=== PATIENT | male | born 1940 | race Caucasian/White ===

== ENCOUNTER 2019-02-09 12:42 | Emergency (ER) | payer MEDICARE, BC ==
[2019-02-09] MEDS ORDERED: Lidocaine 1% 30 ML SDV INJECT ONE (12:59)
[2019-02-09] MEDS ORDERED: Acetaminophen/HYDROcodone 325-10 MG Tab PO ONE (13:29)
--- NOTE | 2019-02-09 13:30 | CR ---
[id number] RAD/RAD Fingers Right EXAM: RAD Fingers Right CLINICAL DATA: TRAUMA COMPARISON: NO PREVIOUS SIMILAR EXAM IS AVAILABLE. FINDINGS: A compound comminuted ungual tuft injury of the distal right third phalanx is seen.. IMPRESSION: COMPOUND UNGUAL TUFT INJURY OF DISTAL RIGHT THIRD PHALANX. Leo Leblanc MD 02/09/19 0602 Thank you for allowing us to participate in the care of your patient.
[2019-02-09] MEDS ORDERED: Diphtheria,Pertussis(Acell),Tetanus Vaccine 0.5 ML Syringe IM ONE (14:59)
--- NOTE | 2019-02-09 16:55 | EDM.PDOC ---
ED HPI GENERAL MEDICAL PROBLEM - General Chief Complaint: Laceration Stated Complaint: INJURED FINGER Time Seen by Provider: 02/09/19 12:50 Source of Information: Reports: Patient History Limitations: Reports: No Limitations - History of Present Illness INITIAL COMMENTS - FREE TEXT/NARRATIVE: Pt. presents to ER with complaints of injury to his R middle finger. He states that he was attempting to move a filing cabinet down stair using a winnie. He lost control of it and sustained a crush injury to the middle finger of the R hand. He states that he did fall onto his R arm/back but did not injure either area, strike his head, or injure his neck. His only complaint is of injury mentioned above. He is a non-smoker, non- drinker. His tetanus is not up to date, or close to being over-do. Onset: Today Location: Reports: Upper Extremity, Right Quality: Reports: Sharp Severity: Severe Right Finger-Middle Pain Score (Numeric/FACES): 7 - Related Data Allergies Allergy/AdvReac Type Severity Reaction Status Date / Time Penicillins Allergy Rash Verified 02/09/19 12:57 Home Meds: Home Meds Levothyroxine [Synthroid] 100 mcg PO ACBREAKFAST 02/09/19 [History] Meloxicam 7.5 mg PO DAILY 02/09/19 [History] Omeprazole 20 mg PO DAILY 02/09/19 [History] traZODone HCl [Trazodone HCl] 50 mg PO DAILY 02/09/19 [History] Past Medical History Endocrine/Metabolic History: Reports: Hypothyroidism Social & Family History - Tobacco Use Smoking Status *Q: Never Smoker ED ROS GENERAL - Review of Systems Review Of Systems: ROS reveals no pertinent complaints other than HPI. ED EXAM, SKIN/RASH Exam: See Below Extremities: Other (Crush injury with partial avulsion of the pad of the 3rd digit of R hand. The tissue that was partially avulsed is dark in color. There are several areas along the laceration with soft tissue protruding through the lacerations with areas of devitilized subcutanous tissue. ROM is normal. He does have a subungual hematoma to the digit.) ED SKIN PROCEDURES - Laceration/Wound Repair Right Digit - 3rd (Middle) Appearance: Subcutaneous, Stellate, Irregular, Moderately Contaminated Distal NVT: Neuro & Vascular Intact Anesthetic Type: Digital Local Anesthesia - Lidocaine (Xylocaine): 1% Plain Local Anesthetic Volume: Other (6) Skin Prep: Chlorhexidine (Hibiciens), Saline Saline Irrigation (cc's): 1,000 Exploration/Debridement/Repair: Wound Explored, Extensive Debridement, Wound Margins Revised Closed with: Sutures Suture Size: 4-0 # of Sutures: 9 Course - Vital Signs Last Recorded V/S: Last Vital Signs Temp 36.9 C 02/09/19 12:46 Pulse 87 02/09/19 12:46 Resp 18 02/09/19 12:46 BP 150/68 H 02/09/19 12:46 Pulse Ox 96 02/09/19 12:46 - Orders/Labs/Meds Orders: Active Orders 24 hr Category Date Time Status Vaccines to be Administered [RC] PER UNIT ROUTINE Care 02/09/19 15:02 Active Meds: Medications Discontinued Medications Generic Name Dose Route Start Last Admin Trade Name Pelonq PRN Reason Stop Dose Admin Hydrocodone Bitart/Acetaminophen 1 tab 02/09/19 13:29 02/09/19 13:36 [place] 325-10 Mg PO 02/09/19 13:30 1 tab ONETIME ONE Administration Diphtheria/Tetanus/Acell Pertussis 0.5 ml 02/09/19 14:59 02/09/19 15:27 Adacel IM 02/09/19 15:00 0.5 ml .ONCE ONE Administration Lidocaine HCl 30 ml 02/09/19 12:59 02/09/19 14:00 Xylocaine-Mpf 1% INJECT 02/09/19 13:00 30 ml ONETIME ONE Administration Departure - Departure Time of Disposition: 15:28 Disposition: Home, Self-Care 01 Condition: Good Clinical Impression: Finger laceration - Discharge Information Instructions: Laceration Care, Adult Referrals: Marcela Ryder DO [Primary Care Provider] - Forms: ED Department Discharge Additional Instructions: Keep tube gauze dressing on until Tuesday. Then remove dressing and use a large bandaid as needed. Keep open to the air as much as possible once the dressing is removed. Sutures out in clinic in 14 days. Follow-up in clinic or return to ER if redness, swelling or discharge from the area. [place] 10/325mg every 4-6 hours as needed for pain. Keflex 500mg 4 times daily for 10 days. Finish course of this antibiotic. - My Orders Last 24 Hours: My Active Orders 02/09/19 15:02 Vaccines to be Administered [RC] PER UNIT ROUTINE - Assessment/Plan Last 24 Hours: My Active Orders 02/09/19 15:02 Vaccines to be Administered [RC] PER UNIT ROUTINE Plan: Keep tube gauze dressing on until Tuesday. Then remove dressing and use a large bandaid as needed. Keep open to the air as much as possible once the dressing is removed. Sutures out in clinic in 14 days. Follow-up in clinic or return to ER if redness, swelling or discharge from the area. [place] 10/325mg every 4-6 hours as needed for pain. Keflex 500mg 4 times daily for 10 days. Finish course of this antibiotic.
== END 2019-02-09 15:28 | disposition home or self-care (01) ==
LOC: VM.ED 12:42
DX: S61.212A Laceration without foreign body of right middle finger without damage to nail, initial encounter (principal); Z23 Encounter for immunization; E03.9 Hypothyroidism, unspecified; Z88.0 Allergy status to penicillin; Z79.899 Other long term (current) drug therapy; W23.0XXA Caught, crushed, jammed, or pinched between moving objects, initial encounter
CPT/HCPCS: 12001; 12002; 73140; 90471; 90715; 99283; A9270; J2001

== ENCOUNTER 2019-02-11 09:05 | Emergency (ER) | payer MEDICARE, BC ==
--- NOTE | 2019-02-11 09:24 | EDM.PDOC ---
ED HPI GENERAL MEDICAL PROBLEM - General Chief Complaint: Allergic Reaction Stated Complaint: ALLERGIC REACTION TO MEDS Time Seen by Provider: 02/11/19 09:18 Source of Information: Reports: Patient, Old Records, RN, RN Notes Reviewed History Limitations: Reports: No Limitations - History of Present Illness INITIAL COMMENTS - FREE TEXT/NARRATIVE: Patient presents to the ED at [facility] for the evaluation of a rash that started a couple days ago. Patient was in this ER two days ago for a laceration repair and was started on Keflex. Patient states shortly after taking his first dose, he started to itch. He continue to take the medication, stating he did not think it was the Keflex. He then noticed on this [facility] MyChart he is allergic to Keflex. No airway problems. Patient is breathing normally. No open skin areas. Rash is faint and scan to the upper back. No evidence of scratch tompkins. - Related Data Allergies Allergy/AdvReac Type Severity Reaction Status Date / Time cephalexin [From Keflex] Allergy Rash Verified 02/11/19 09:24 meclizine Allergy Cannot Verified 02/11/19 09:24 Remember Penicillins Allergy Rash Verified 02/09/19 12:57 CT dye Allergy Cannot Uncoded 02/11/19 09:24 Remember Home Meds: Home Meds Levothyroxine [Synthroid] 100 mcg PO ACBREAKFAST 02/09/19 [History] Meloxicam 7.5 mg PO DAILY 02/09/19 [History] Omeprazole 20 mg PO DAILY 02/09/19 [History] traZODone HCl [Trazodone HCl] 50 mg PO DAILY 02/09/19 [History] Aspirin 81 mg PO DAILY 02/11/19 [History] Betamethasone Dipropionate [Diprosone 0.05% Crm] 15 gm TOP BID 02/11/19 [History ] Cholecalciferol (Vitamin D3) [Vitamin D3] 1,000 units PO DAILY 02/11/19 [History ] Multivitamin [Multivitamins] 1 each PO DAILY 02/11/19 [History] methylPREDNISolone [Medrol] 4 mg PO ASDIRECTED #1 dosepk 02/11/19 [Rx] Past Medical History Endocrine/Metabolic History: Reports: Hypothyroidism ED ROS ALLERGIC REACTION - Review of Systems Review Of Systems: ROS reveals no pertinent complaints other than HPI. ED EXAM GENERAL NO PERIP PULSE - Physical Exam Exam: See Below Exam Limited By: No Limitations General Appearance: Alert, No Apparent Distress Respiratory/Chest: No Respiratory Distress, Lungs Clear, Normal Breath Sounds Cardiovascular: Normal Peripheral Pulses, Regular Rate, Rhythm Neurological: Alert, Oriented Skin Exam: Warm, Dry, Intact, Rash (upper back, face, upper anterior chest wall) Course - Vital Signs Last Recorded V/S: Last Vital Signs Temp 36.7 C 02/11/19 09:10 Pulse 79 02/11/19 09:10 Resp 20 02/11/19 09:10 BP 134/58 L 02/11/19 09:10 Pulse Ox 97 02/11/19 09:10 Departure - Departure Time of Disposition: 09:45 Disposition: Home, Self-Care 01 Condition: Good Clinical Impression: Drug reaction Qualifiers: Encounter type: initial encounter Qualified Code(s): T50.905A - Adverse effect of unspecified drugs, medicaments and biological substances, initial encounter - Discharge Information *PRESCRIPTION DRUG MONITORING PROGRAM REVIEWED*: Not Applicable *COPY OF PRESCRIPTION DRUG MONITORING REPORT IN PATIENT TEODORA: Not Applicable Prescriptions: methylPREDNISolone [Medrol] 4 mg PO ASDIRECTED #1 dosepk Instructions: Drug Allergy Referrals: Marcela Ryder, [Primary Care Provider] - Forms: ED Department Discharge Additional Instructions: 1. Stay well hydrated and rest 2. Take medication for the full coarse, even if you are feeling better 3. Keep bandage on until tomorrow, then remove and keep open to air after that 4. No need for any additional antibiotics 5. See your PCP as symptoms warrant - Problem List Review Problem List Initiated/Reviewed/Updated: Yes - Assessment/Plan Assessment:: Allergic reaction to Cephalexin Drug Reaction Plan: Will stop Keflex. No need to start any additional abx therapy. Will start on Medrol dos manuel. Discussed drug reactions and what to watch for. Discussed airway and breathing and when to call 911. See PCP as symptoms warrant.
[2019-02-11] MEDS: methylPREDNISolone Sodium Succinate 40 MG/1 ML SDV IVPUSH ONE (09:45)
[2019-02-11] MEDS: methylPREDNISolone Sodium Succinate 40 MG/1 ML SDV IM ONE (09:49)
== END 2019-02-11 09:56 | disposition home or self-care (01) ==
LOC: VM.ED 09:05
DX: L27.0 Generalized skin eruption due to drugs and medicaments taken internally (principal); T36.1X5A Adverse effect of cephalosporins and other beta-lactam antibiotics, initial encounter; E03.9 Hypothyroidism, unspecified; Z88.0 Allergy status to penicillin; Z91.041 Radiographic dye allergy status; Z88.8 Allergy status to other drugs, medicaments and biological substances; Z79.899 Other long term (current) drug therapy; Z79.82 Long term (current) use of aspirin
CPT/HCPCS: 96372; 99283; J2920

== ENCOUNTER 2019-02-18 08:44 | Emergency (ER) | payer MEDICARE, BC ==
[2019-02-18] MEDS ORDERED: Take Home: Sulfamethoxazole/Trimethoprim 800-160 MG Tab, 2 Tab Pack PO ONE (09:08)
[2019-02-18] MEDS ORDERED: Sulfamethoxazole/Trimethoprim 800-160 MG Tab PO ONE (09:08)
--- NOTE | 2019-02-18 09:19 | EDM.PDOC ---
ED HPI GENERAL MEDICAL PROBLEM - General Chief Complaint: Wound Recheck Stated Complaint: SMASHED FINGER Time Seen by Provider: 02/18/19 09:00 Source of Information: Reports: Patient History Limitations: Reports: No Limitations - History of Present Illness INITIAL COMMENTS - FREE TEXT/NARRATIVE: Patient comes into the emergency department with right hand finger discomfort. Patient was in here approximately 5 days ago for a finger laceration after having his finger smashed with a file cabinet. At that time frame it was also found that the tip of his 3rd phalange was shattered. Orthopedic/hand speciality was consulted however they cannot fix the tip of the finger. They recommended fixing the laceration and follow-up as needed. The patient was also placed on cephalexin for infection prophylaxis. When he was placed on the medication he forgot that he did have an allergy to that. He taken 3 doses and broke out in a rash. Since back to the emergency department where they discontinued the medication and did not start him on any other antibiotics. Patient comes in today stating that his finger has increase in swelling minimal drainage and the 1 suture "pop" last night. He would like further evaluation of the finger. He denies any fever, chills, nausea, or vomiting. Since the suture opening he believes the finger does feel better. Onset: Gradual Quality: Reports: Dull, Throbbing Improves with: Reports: None Worsens with: Reports: None Context: Reports: Other Associated Symptoms: Reports: No Other Symptoms Right Finger-Middle Pain Score (Numeric/FACES): 5 - Related Data Allergies Allergy/AdvReac Type Severity Reaction Status Date / Time cephalexin [From Keflex] Allergy Rash Verified 02/18/19 09:12 meclizine Allergy Cannot Verified 02/18/19 09:12 Remember Penicillins Allergy Rash Verified 02/18/19 09:12 CT dye Allergy Cannot Uncoded 02/11/19 09:24 Remember Home Meds: Home Meds Levothyroxine [Synthroid] 100 mcg PO ACBREAKFAST 02/09/19 [History] Meloxicam 7.5 mg PO DAILY 02/09/19 [History] Omeprazole 20 mg PO DAILY 02/09/19 [History] traZODone HCl [Trazodone HCl] 75 mg PO DAILY 02/09/19 [History] Aspirin 81 mg PO DAILY 02/11/19 [History] Betamethasone Dipropionate [Diprosone 0.05% Crm] 15 gm TOP BID 02/11/19 [History ] Cholecalciferol (Vitamin D3) [Vitamin D3] 1,000 units PO DAILY 02/11/19 [History ] Multivitamin [Multivitamins] 1 each PO DAILY 02/11/19 [History] methylPREDNISolone [Medrol] 4 mg PO ASDIRECTED #1 dosepk 02/11/19 [Rx] Sulfamethoxazole/Trimethoprim [Bactrim Ds Tablet] 1 each PO BID #18 tablet 02/18 [Rx] Past Medical History Endocrine/Metabolic History: Reports: Hypothyroidism ED ROS GENERAL - Review of Systems Review Of Systems: ROS reveals no pertinent complaints other than HPI. ED EXAM, GENERAL - Physical Exam Exam: See Below Exam Limited By: No Limitations General Appearance: Alert, WD/WN, No Apparent Distress Respiratory/Chest: No Respiratory Distress, No Accessory Muscle Use Cardiovascular: Normal Peripheral Pulses Peripheral Pulses: 2+: Radial (L), Radial (R) Extremities: Other (right hand 3 finger. redness, swelling, and warmth noted. Serous drainage noted on bandaid. sutures intact. 1 suture has been disrupted due to swelling. ) Neurological: Alert, Oriented Psychiatric: Normal Affect, Normal Mood Skin Exam: Warm, Dry, Intact, Normal Color Course - Vital Signs Last Recorded V/S: Last Vital Signs Temp 36.4 C 02/18/19 09:01 Pulse 90 02/18/19 09:01 Resp 16 02/18/19 09:01 BP 130/63 02/18/19 09:01 Pulse Ox 99 02/18/19 09:01 - Orders/Labs/Meds Orders: Active Orders 24 hr Category Date Time Status Sulfamethoxazole/Trimethoprim [Septra DS] Med 02/18/19 09:08 Stop Req 1 tab PO ONETIME ONE Sulfamethoxazole/Trimethoprim [Take Home: Sulfameth/ Med 02/18/19 09:08 Once Trimet 800-160MG, 2 Pack] 1 packet PO ONETIME ONE Medication Orders Trimethoprim/Sulfamethoxazole (Take Home: Sulfameth/Trimet 800-160mg, 2 Pack) 1 packet PO ONETIME ONE Stop: 02/18/19 09:09 Meds: Medications Generic Name Dose Route Start Last Admin Trade Name Freq PRN Reason Stop Dose Admin Trimethoprim/Sulfamethoxazole 1 packet 02/18/19 09:08 Take Home: Sulfameth/Trimet 800-160mg, 2 Pack PO 02/18/19 09:09 ONETIME ONE Discontinued Medications Generic Name Dose Route Start Last Admin Trade Name Mukul PRN Reason Stop Dose Admin Trimethoprim/Sulfamethoxazole 1 tab 02/18/19 09:08 Septra Ds PO 02/18/19 09:09 ONETIME ONE Departure - Departure Time of Disposition: 09:10 Disposition: Home, Self-Care 01 Condition: Good Clinical Impression: Finger infection Cellulitis Qualifiers: Site of cellulitis: extremity Site of cellulitis of extremity: finger Laterality: right Qualified Code(s): L03.011 - Cellulitis of right finger - Discharge Information *PRESCRIPTION DRUG MONITORING PROGRAM REVIEWED*: Not Applicable *COPY OF PRESCRIPTION DRUG MONITORING REPORT IN PATIENT TEODORA: Not Applicable Prescriptions: Sulfamethoxazole/Trimethoprim [Bactrim Ds Tablet] 1 each PO BID #18 tablet Instructions: Cellulitis, Adult, Sulfamethoxazole; Trimethoprim, SMX-TMP tablets, Probiotics Additional Instructions: 1. rest 2. Can place ice on the finger to help with swelling 3. Take all antibiotic even if feeling better 4. take a probiotic to help with proper GI health 5. Follow up in the clinic this next week 6. Call with any questions or concerns 7. wash the hand daily in soap and water 8. Activity and diet as tolerated - My Orders Last 24 Hours: My Active Orders 02/18/19 09:08 Sulfamethoxazole/Trimethoprim [Septra DS] 1 tab PO ONETIME ONE Sulfamethoxazole/Trimethoprim [Take Home: Sulfameth/Trimet 800-160MG, 2 Pack] 1 packet PO ONETIME ONE - Assessment/Plan Last 24 Hours: My Active Orders 02/18/19 09:08 Sulfamethoxazole/Trimethoprim [Septra DS] 1 tab PO ONETIME ONE Sulfamethoxazole/Trimethoprim [Take Home: Sulfameth/Trimet 800-160MG, 2 Pack] 1 packet PO ONETIME ONE Assessment:: 1. finger infection post injury Plan: 1. 1 sutures has been disrupted and the finger is swollen and red. We will not place any more sutures due to the healing time 2. Wound care completed 3. Bactrim given in the ER and pt sent home with script 4. Instructions for soaking/cleaning was advised 5. Follow up is recommended this week for close monitoring 6. All questions and concerns were addressed prior to discharge
== END 2019-02-18 09:15 | disposition home or self-care (01) ==
LOC: VM.ED 08:44
DX: L03.011 Cellulitis of right finger (principal); Z88.1 Allergy status to other antibiotic agents; Z88.0 Allergy status to penicillin; Z91.041 Radiographic dye allergy status; Z79.899 Other long term (current) drug therapy
CPT/HCPCS: 99283; A9270-GY

== ENCOUNTER 2022-04-25 03:55 | Inpatient (IN) | payer MEDICARE, BC ==
[2022-04-25] MEDS ORDERED: Sodium Chloride 0.9% 10 ML Syringe FLUSH PRN (04:03)
[2022-04-25] MEDS ORDERED: Ondansetron 4 MG/2 ML SDV IVPUSH ONE (04:03)
[2022-04-25] MEDS ORDERED: Sodium Chloride 0.9% 1,000 ML IV ONE ×2 (04:03→04:43)
[2022-04-25] MEDS ORDERED: Take Home: Ondansetron 4 MG Tab.DIS, 5 Tab Pack PO ONE (04:24)
[2022-04-25 04:33] LABS: CHLORIDE,CL 97 mmol/L (98-107); SODIUM,NA 139 mmol/L (136-145)
[2022-04-25 04:37] LABS: ANION GAP 12.3 mmol/L (5-15); ESTIMATED GFR > 60
[2022-04-25] MEDS ORDERED: Ondansetron 4 MG/2 ML SDV IVPUSH PRN (08:32)
[2022-04-25] MEDS ORDERED: Polyethylene Glycol 3350 Powder 17 GM Packet PO PRN (08:33)
[2022-04-25] MEDS ORDERED: Magnesium Hydroxide 400 MG/5 ML Susp 30 ML Cup PO PRN (08:33)
[2022-04-25] MEDS: Sodium Chloride 0.9% 1,000 ML IV SCH ×2 (12:08→21:02)
[2022-04-25] MEDS: Metoclopramide 10 MG/2 ML SDV IVPUSH SCH ×3 (12:14→20:53)
[2022-04-25] MEDS: HYDROmorphone 0.5 MG/0.5 ML Syringe IVPUSH PRN ×2 (12:14→18:08)
[2022-04-25] MEDS: Pantoprazole 40 MG Vial IVPUSH SCH ×2 (12:15→20:46)
[2022-04-25] MEDS: Clobetasol 0.05% Crm 30 GM Tube TOP SCH ×2 (12:15→20:58)
[2022-04-25] MEDS: traZODone 50 MG Tab PO SCH (12:15)
[2022-04-26] MEDS: Metoclopramide 10 MG/2 ML SDV IVPUSH SCH ×3 (02:26→15:38)
[2022-04-26] MEDS: Levothyroxine 100 MCG Tab PO SCH (06:15)
[2022-04-26] MEDS: Sodium Chloride 0.9% 1,000 ML IV SCH (06:22)
[2022-04-26 07:08] LABS: ANION GAP 11.5 mmol/L (5-15); CHLORIDE,CL 105 mmol/L (98-107); ESTIMATED GFR > 60; SODIUM,NA 143 mmol/L (136-145)
[2022-04-26] MEDS: HYDROmorphone 0.5 MG/0.5 ML Syringe IVPUSH PRN (08:25)
[2022-04-26] MEDS: traZODone 50 MG Tab PO SCH ×2 (08:27→20:33)
[2022-04-26] MEDS: Pantoprazole 40 MG Vial IVPUSH SCH ×2 (08:27→20:32)
[2022-04-26] MEDS ORDERED: Enoxaparin 40 MG/0.4 ML Syringe SUBCUT SCH (08:45)
[2022-04-26] MEDS: Clobetasol 0.05% Crm 30 GM Tube TOP SCH ×2 (09:07→20:32)
[2022-04-26] MEDS ORDERED: Metoclopramide 10 MG/2 ML SDV IVPUSH SCH (21:00)
[2022-04-27] MEDS: Sodium Chloride 0.9% 1,000 ML IV SCH (02:17)
[2022-04-27] MEDS: Levothyroxine 100 MCG Tab PO SCH (06:29)
[2022-04-27 06:50] LABS: ANION GAP 14.4 mmol/L (5-15); CHLORIDE,CL 107 mmol/L (98-107); ESTIMATED GFR > 60; SODIUM,NA 144 mmol/L (136-145)
[2022-04-27] MEDS: Clobetasol 0.05% Crm 30 GM Tube TOP SCH ×2 (08:09→20:18)
[2022-04-27] MEDS: Pantoprazole 40 MG Vial IVPUSH SCH ×2 (08:10→20:14)
[2022-04-27] MEDS: Metoclopramide 10 MG/2 ML SDV IVPUSH SCH ×2 (08:10→14:41)
[2022-04-27] MEDS ORDERED: Acetaminophen Susp 160 MG/5 ML 120 ML Bottle PO PRN (09:24)
[2022-04-27] MEDS ORDERED: Enoxaparin 40 MG/0.4 ML Syringe SUBCUT SCH (09:30)
[2022-04-27] MEDS: Potassium Chloride 10 MEQ Tab.ER PO SCH (16:34)
[2022-04-27] MEDS ORDERED: Metoclopramide 10 MG/2 ML SDV IVPUSH SCH (17:30)
[2022-04-27] MEDS: traZODone 50 MG Tab PO SCH (20:15)
[2022-04-28] MEDS: Levothyroxine 100 MCG Tab PO SCH (06:04)
[2022-04-28 06:46] LABS: ANION GAP 13.4 mmol/L (5-15)
[2022-04-28] MEDS ORDERED: Metoclopramide 10 MG/2 ML SDV IVPUSH SCH (09:00)
[2022-04-28] MEDS ORDERED: Acetaminophen 325 MG Tab PO PRN (09:12)
[2022-04-28] MEDS ORDERED: Metoclopramide 5 MG Tab PO SCH (09:15)
[2022-04-28] MEDS ORDERED: Omeprazole 20 MG Cap.CR PO SCH (09:15)
[2022-04-28] MEDS: Potassium Chloride 10 MEQ Tab.ER PO SCH (09:25)
[2022-04-28] MEDS: Clobetasol 0.05% Crm 30 GM Tube TOP SCH (09:26)
== END 2022-04-28 12:30 | disposition home or self-care (01) | DRG 390 ==
LOC: VM.ED 03:55 → VM.MS 06:55
PROVIDERS: ADMIT Nurse Practitioner Family; ATTEND Internal Medicine
PROC: 0DH67UZ Insertion of Feeding Device into Stomach, Via Natural or Artificial Opening (ICD-10-PCS; principal; 2022-04-25)
DX: K56.609 Unspecified intestinal obstruction, unspecified as to partial versus complete obstruction (principal); R11.2 Nausea with vomiting, unspecified; K56.600 Partial intestinal obstruction, unspecified as to cause; E87.6 Hypokalemia; E03.9 Hypothyroidism, unspecified; D69.6 Thrombocytopenia, unspecified; K21.9 Gastro-esophageal reflux disease without esophagitis; Z79.890 Hormone replacement therapy; K52.9 Noninfective gastroenteritis and colitis, unspecified; Z79.82 Long term (current) use of aspirin; Z79.899 Other long term (current) drug therapy; Z88.0 Allergy status to penicillin; Z88.1 Allergy status to other antibiotic agents; Z88.8 Allergy status to other drugs, medicaments and biological substances; Z91.041 Radiographic dye allergy status
CPT/HCPCS: 43752; 71045; 74018; 74176; 80053; 81003; 83605; 85025; 96361; 96374; 99284; 99285; J2405; J7030 ×2; 36415; 83735; A9270-GY; C9113; J1170; J1650; J2765; J3490